=== PATIENT | female | born 1940 | race Caucasian/White ===

== ENCOUNTER → 2021-04-07 | Outpatient (CLI) | payer MEDICARE, OTHER ==
[~2021-04-07] MED LIST: ACET-687 PO; ALBU18HF IH; ALBU5SOL5 IH; ARIP10TA9 PO; ASPI-485 PO; ASPI81TA61 PO; ATOR40TA PO; BACL10TA PO; BENZ0.5T35 PO; BENZ100C PO; BUDE0.5A3 IH; CARB-212 PO; CARB1TAB3 PO; CARV6.252 PO; CEPH-350 PO; CHOL20009 PO; CILO50TA PO; CITA40TA12 PO; CLOP75TA PO; CLOP75TA52 PO; CYAN100073 PO; CYCL10TA2 PO; DIVA125C2 PO; DIVA250T PO; ENOX40DI SQ; ESCI10TA10 PO; ESTR10TA VG; ESZO2TAB21 PO; FENO160T PO; FLUT16SP NS; FURO-80 PO; FURO-81 PO; GABA300C10 PO; GABA600T7 PO; GLIM1TAB PO; GLIM2TAB PO; GLIM2TAB7 PO; HYDR-3101 PO; HYDR-3416 PO; HYDR25TA9 PO; INSU100I13 SQ; INSU100V11 SUBCUT; INSU100V8 SQ; Ipratropium/Albuterol Sulfate IH; LEVO88TA5 PO; LISI-593 PO; LISI10TA20 PO; LORA-447 PO; LORA-448 PO; LORA1TAB PO; LOSA100T2 PO; MELA3TAB31 PO; METF10007 PO; METF500T17 PO; METO50TA4 PO; METO50TA6 PO; MOME13HF2 IH; MULT-632 PO; NITR100C PO; NYST60PO TP; OLAN5TAB5 PO; OLAN7.5T3 PO; OMEG1CAP22 PO; POLY17PO5 PO; POTA10TA14 PO; PRED20TA PO; QUET50TA PO; RISP2TAB80 PO; ROPI0.25 PO; ROPI1TAB PO; SERT-319 PO; SERT50TA PO; SPIR25TA PO; TRIA10.8 NS; UBID100C23 PO; UMEC1DIS IH; Venlafaxine Hcl PO; ZIPR20CA3 PO
[2021-04-07 17:07] LABS: BASOPHIL % 0.3 % (0.0-0.2); EOSINOPHIL # 0.2 10^3/uL (0.0-0.2); EOSINOPHIL % 2.8 % (0.0-5.0); LYMPHOCYTES # 1.94 10^3/uL1 (1.0-4.8); LYMPHOCYTES % 31.7 % (24.0-44.0); MEAN CORP HGB 29.6 pg (26-34); MONOCYTES # 0.4 10^3/uL (0.3-0.8); MONOCYTES % 6.5 % (5.0-12.0); NEUTROPHIL # 3.5 10^3/uL (1.8-7.7); NEUTROPHILS % 56.7 % (41.0-85.0); PLATELET COUNT 218 10^3/uL (150-400); RED CELL DISTRIBUTION WIDTH 13.5 % (11.5-14.5)
[2021-04-07 17:28] LABS: CALCIUM 9.1 mg/dL (8.4-10.5); CARBON DIOXIDE 33.4 mmol/L (20.0-32)
== END | disposition home or self-care (01) ==
LOC: NPLAB 16:35
PROVIDERS: ATTEND Nurse Practitioner Acute Care
DX: E11.9 Type 2 diabetes mellitus without complications (principal); I48.20 Chronic atrial fibrillation, unspecified; J44.9 Chronic obstructive pulmonary disease, unspecified; E56.9 Vitamin deficiency, unspecified; Z79.899 Other long term (current) drug therapy
CPT/HCPCS: 80053; 80164; 82306; 83036; 84443; 85025

== ENCOUNTER → 2021-04-15 | Outpatient (CLI) | payer MEDICARE, OTHER ==
[~2021-04-15] MED LIST changes: -ALBU5SOL5 IH; +DOCU50LI23 IH
[2021-04-15 20:28] LABS: BASOPHIL % 0.3 % (0.0-0.2); EOSINOPHIL # 0.2 10^3/uL (0.0-0.2); EOSINOPHIL % 3.5 % (0.0-5.0); LYMPHOCYTES # 2.43 10^3/uL1 (1.0-4.8); LYMPHOCYTES % 40.2 % (24.0-44.0); MEAN CORP HGB 29.3 pg (26-34); MONOCYTES # 0.6 10^3/uL (0.3-0.8); MONOCYTES % 9.9 % (5.0-12.0); NEUTROPHIL # 2.7 10^3/uL (1.8-7.7); NEUTROPHILS % 44.6 % (41.0-85.0); PLATELET COUNT 233 10^3/uL (150-400); RED CELL DISTRIBUTION WIDTH 13.8 % (11.5-14.5)
[2021-04-15 20:30] LABS: CALCIUM 9.1 mg/dL (8.4-10.5); CARBON DIOXIDE 38.4 mmol/L (20.0-32)
== END | disposition home or self-care (01) ==
LOC: NPLAB 17:49
PROVIDERS: ATTEND Nurse Practitioner Acute Care
DX: I10 Essential (primary) hypertension (principal); E56.9 Vitamin deficiency, unspecified
CPT/HCPCS: 80048; 85025

== ENCOUNTER → 2021-04-22 | Outpatient (CLI) | payer MEDICARE, OTHER ==
[2021-04-22 16:20] LABS: MEAN CORP HGB 29.4 pg (26-34); RED CELL DISTRIBUTION WIDTH 13.8 % (11.5-14.5)
[2021-04-22 16:27] LABS: CALCIUM 9.3 mg/dL (8.4-10.5); CARBON DIOXIDE 35.8 mmol/L (20.0-32)
== END | disposition home or self-care (01) ==
LOC: NPLAB 15:57
PROVIDERS: ATTEND Nurse Practitioner Acute Care
DX: I10 Essential (primary) hypertension (principal); E56.9 Vitamin deficiency, unspecified
CPT/HCPCS: 80048; 83735; 85027

== ENCOUNTER → 2021-04-29 | Outpatient (CLI) | payer MEDICARE, OTHER ==
[2021-04-29 16:36] LABS: BASOPHIL % 0.3 % (0.0-0.2); EOSINOPHIL # 0.3 10^3/uL (0.0-0.2); EOSINOPHIL % 4.6 % (0.0-5.0); LYMPHOCYTES # 2.48 10^3/uL1 (1.0-4.8); LYMPHOCYTES % 42.7 % (24.0-44.0); MONOCYTES # 0.5 10^3/uL (0.3-0.8); MONOCYTES % 8.6 % (5.0-12.0); NEUTROPHIL # 2.5 10^3/uL (1.8-7.7); NEUTROPHILS % 43.8 % (41.0-85.0); PLATELET COUNT 160 10^3/uL (150-400); RED CELL DISTRIBUTION WIDTH 13.1 % (11.5-14.5)
[2021-04-29 16:52] LABS: CALCIUM 9.3 mg/dL (8.4-10.5); CARBON DIOXIDE 36.9 mmol/L (20.0-32)
== END | disposition home or self-care (01) ==
LOC: NPLAB 16:14
PROVIDERS: ATTEND Nurse Practitioner Acute Care
DX: I10 Essential (primary) hypertension (principal); E56.9 Vitamin deficiency, unspecified
CPT/HCPCS: 80048; 85025

== ENCOUNTER → 2021-05-06 | Outpatient (CLI) | payer MEDICARE, OTHER ==
[2021-05-06 16:38] LABS: MEAN CORP HGB 29.9 pg (26-34); RED CELL DISTRIBUTION WIDTH 13.1 % (11.5-14.5)
[2021-05-06 16:49] LABS: CALCIUM 9.2 mg/dL (8.4-10.5); CARBON DIOXIDE 33.1 mmol/L (20.0-32)
== END | disposition home or self-care (01) ==
LOC: NPLAB 16:12
PROVIDERS: ATTEND Nurse Practitioner Acute Care
DX: E56.9 Vitamin deficiency, unspecified (principal); I10 Essential (primary) hypertension
CPT/HCPCS: 80048; 85027

== ENCOUNTER → 2021-05-15 | Outpatient (CLI) | payer MEDICARE, OTHER ==
[~2021-05-15] MED LIST changes: +ALBU5SOL5 IH; -DOCU50LI23 IH; -QUET50TA PO; +QUET50TA3 PO
[2021-05-15 15:24] LABS: BASOPHIL % 0.3 % (0.0-0.2); EOSINOPHIL # 0.3 10^3/uL (0.0-0.2); EOSINOPHIL % 3.1 % (0.0-5.0); LYMPHOCYTES # 3.18 10^3/uL1 (1.0-4.8); LYMPHOCYTES % 36.8 % (24.0-44.0); MEAN CORP HGB 29.2 pg (26-34); MONOCYTES # 0.7 10^3/uL (0.3-0.8); MONOCYTES % 8.3 % (5.0-12.0); NEUTROPHIL # 4.4 10^3/uL (1.8-7.7); NEUTROPHILS % 50.5 % (41.0-85.0); PLATELET COUNT 211 10^3/uL (150-400); RED CELL DISTRIBUTION WIDTH 13.6 % (11.5-14.5)
[2021-05-15 15:30] LABS: CALCIUM 9.9 mg/dL (8.4-10.5); CARBON DIOXIDE 37.2 mmol/L (20.0-32)
== END | disposition home or self-care (01) ==
LOC: NPLAB 14:59
PROVIDERS: ATTEND Nurse Practitioner Acute Care
DX: I10 Essential (primary) hypertension (principal)
CPT/HCPCS: 80048; 85025

== ENCOUNTER → 2021-05-20 | Outpatient (CLI) | payer MEDICARE, OTHER ==
[2021-05-20 15:42] LABS: BASOPHIL % 0.6 % (0.0-0.2); EOSINOPHIL # 0.1 10^3/uL (0.0-0.2); EOSINOPHIL % 1.3 % (0.0-5.0); LYMPHOCYTES # 1.91 10^3/uL1 (1.0-4.8); LYMPHOCYTES % 27.1 % (24.0-44.0); MEAN CORP HGB 29.1 pg (26-34); MONOCYTES # 0.5 10^3/uL (0.3-0.8); MONOCYTES % 6.4 % (5.0-12.0); NEUTROPHIL # 4.5 10^3/uL (1.8-7.7); RED CELL DISTRIBUTION WIDTH 13.4 % (11.5-14.5)
[2021-05-20 15:44] LABS: CALCIUM 9.6 mg/dL (8.4-10.5)
[2021-05-20 15:46] LABS: PLATELET COUNT 125 10^3/uL (150-400)
== END | disposition home or self-care (01) ==
LOC: NPLAB 14:58
PROVIDERS: ATTEND Nurse Practitioner Acute Care
DX: I10 Essential (primary) hypertension (principal)
CPT/HCPCS: 80048; 85025